=== PATIENT | female | born 1960 | race Caucasian/White ===

== ENCOUNTER 2018-09-20 22:39 | Emergency (ER) | payer OTHER ==
[~2018-09-20] VITALS: Ht 160 cm; Wt 65.8 kg
--- NOTE | ~2018-09-20 | EKG ---
[place] [address] [facility] [email or web address] [address] ELECTROCARDIOGRAM REPORT Name: TARIJOSE Room [facility]: [id number] Admission: 09/20/18 Attend Phys: Discharge: 09/21/18 Date of : 62 Report #: [id number] THIS REPORT FOR: //name// [facility] ED Test Date: 2018-09-21 Test Time: 00:15:43 Pat Name: JOSE MARC Department: Room: Gender: F Thread Singer: YASMANI : 1960 Requested By: Yesenia Bang Order Number: [id number] MD: Bebeto Murrell Measurements Intervals Capac Rate: 93 P: 84 RI: 160 QRS: 91 QRSD: 88 T: 49 QT: 349 QTc: 435 Interpretive Statements Sinus rhythm Borderline right axis deviation Borderline low voltage, extremity leads Compared to ECG 05/26/2000 02:53:58 No significant changes Electronically Signed On 09-21-2018 8:11:35 [employer]IL [employer] by Bebeto Murrell [email or web address] <ELECTRONICALLY SIGNED> By: Bebeto Murrell MD, [facility] 09/21/18 0811 0015 Bebeto Murrell MD, FAC /EPI
[~2018-09-20 22:39] MED LIST: BENTYL20 MG PO; L-THYROXINE; ZOFRAN4 MG PO
[2018-09-20 23:40] LABS: HEMATOCRIT 47.6 % (37.0-47.0); HEMOGLOBIN 16.2 gm/dL (12.0-15.0); MCH 29.4 pg (26.0-34.0); MCHC 34.1 g/dL (28.0-37.0); MCV 86.2 fL (80.0-100.0); RBC 5.52 mil/uL (4.20-5.00); RDW 12.9 % (10.5-14.5); WBC 11.9 thou/uL (4.0-11.0)
[2018-09-20 23:46] LABS: ANION GAP 12 mmol/L (7-16); BUN 15 mg/dL (7-18); CHLORIDE 101 mmol/L (98-107); CO2 30 mmol/L (21-32); CREATININE 1.1 mg/dL (0.6-1.0); GLUCOSE 110 mg/dL (74-106); POTASSIUM 3.6 mmol/L (3.5-5.1); SODIUM 143 mmol/L (136-145)
[2018-09-20 23:55] LABS: ALBUMIN 4.2 g/dL (3.4-5.0); LIPASE 199 U/L (73-393); SGOT 35 U/L (15-37); SGPT 55 U/L (30-65); TOTAL BILIRUBIN 0.3 mg/dL (<0.1-1.0); TROPONIN-I <0.06 ng/mL (<0.06)
[2018-09-21 01:31] VITALS: BP 191/101
== END 2018-09-21 01:32 | disposition home or self-care (01) ==
LOC: ER 22:39
PROVIDERS: Student in an Organized Health Care Education/Training Program
DX: K90.0 Celiac disease (principal); R11.2 Nausea with vomiting, unspecified; Z91.018 Allergy to other foods

== ENCOUNTER 2018-12-19 22:31 | Emergency (ER) | payer OTHER ==
[~2018-12-19] VITALS: Ht 160 cm; Wt 63.5 kg
[~2018-12-19 22:31] MED LIST changes: -L-THYROXINE; +LEVOTHYROXINE500 MCG PO
[2018-12-19 23:30] LABS: ABSOLUTE NEUTROPHILS 4.2 thou/uL (1.4-8.2); BASOPHILS 0.4 % (0.0-2.0); EOSINOPHILS 3.8 % (0.0-3.0); HEMATOCRIT 43.4 % (37.0-47.0); HEMOGLOBIN 14.9 gm/dL (12.0-15.0); LYMPHOCYTES 27.9 % (24.0-44.0); MCH 29.4 pg (26.0-34.0); MCHC 34.3 g/dL (28.0-37.0); MCV 85.8 fL (80.0-100.0); MONOCYTES 8.1 % (1.0-8.0); PLATELET COUNT 255 thou/uL (150-400); POLYS 59.8 % (36.0-66.0); RBC 5.07 mil/uL (4.20-5.00); RDW 12.5 % (10.5-14.5); WBC 6.9 thou/uL (4.0-11.0)
[2018-12-19 23:47] LABS: ANION GAP 12 mmol/L (7-16); BUN 17 mg/dL (7-18); CALCIUM 9.6 mg/dL (8.5-10.1); CHLORIDE 102 mmol/L (98-107); CO2 27 mmol/L (21-32); CREATININE 0.7 mg/dL (0.6-1.0); GLUCOSE 93 mg/dL (74-106); POTASSIUM 4.1 mmol/L (3.5-5.1); SODIUM 141 mmol/L (136-145)
[2018-12-19 23:55] LABS: ALBUMIN 3.7 g/dL (3.4-5.0); SGOT 42 U/L (15-37); SGPT 70 U/L (30-65); TOTAL BILIRUBIN 0.4 mg/dL (<0.1-1.0); TOTAL PROTEIN 8.2 g/dL (6.4-8.2); TROPONIN-I <0.06 ng/mL (<0.06)
[2018-12-20 02:55] VITALS: BP 149/65
--- NOTE | 2018-12-20 10:59 | EKG ---
[address] [address] ELECTROCARDIOGRAM REPORT Name: JOSE MARC [facility] [id number] Admission: 12/19/18 Attend Phys: Discharge: 12/20/18 Date of : 62 Report #: [id number] THIS REPORT FOR: //name// [facility] ED Test Date: 2018-12-19 Test Time: 22:49:20 Pat Name: JOSE MARC Department: Room: Gender: F Crm Developer: BLADIMIR : 1960 Requested By: Pravin Hdez Order Number: [id number] MD: Ángel Gomez Measurements Intervals [place] Rate: 108 P: 49 NC: 169 QRS: 63 QRSD: 86 T: 25 QT: 330 QTc: 443 Interpretive Statements Sinus tachycardia Probable left atrial enlargement Nonspecific ST segment abnormalities Compared to ECG 09/21/2018 00:15:43 Sinus rhythm no longer present Electronically Signed On 12-20-2018 10:58:58 V BELT CURER by Ángel Gomez [email or web address] <ELECTRONICALLY SIGNED> By: Ángel Gomez MD 12/20/18 1058 [id number] MD DEBORA Denton
== END 2018-12-20 02:56 | disposition home or self-care (01) ==
LOC: ER 22:31
PROVIDERS: Emergency Medicine
DX: J20.8 Acute bronchitis due to other specified organisms (principal); Z91.09 Other allergy status, other than to drugs and biological substances; B97.89 Other viral agents as the cause of diseases classified elsewhere